=== PATIENT | female | born 1960 | race Caucasian/White ===

== ENCOUNTER 2018-11-18 19:29 | Emergency (ER) | payer SELFPAY ==
[2018-11-18] MEDS ORDERED: AZITHROMYCIN 250 MG TABLET PO ONE (23:05)
[2018-11-18] MEDS ORDERED: PREDNISONE 20 MG TABLET PO ONE (23:06)
--- NOTE | 2018-11-18 23:10 | ER Document Report ---
HPI - HPI Time Seen by Provider: 11/18/18 22:54 Pain Level: 2 Context: Patient is a 58-year-old female that comes to the emergency department for chief complaint of 4 days of symptoms including cough, sinus congestion, chills, sinus pressure. She had a mild sore throat. She states that she has worsened to the point where she has coughed up green sputum, coughed until she vomited, and she has had some nausea with eating. She is still hydrating easily. She smokes. She states she was diagnosed with hypertension in the past but she does not take any current medications. She has not had the influenza vaccine. - EENT EENT: REPORTS: Sore Throat Past Medical History - General Information source: Patient - Social History Smoking Status: Current Every Day Smoker Chew tobacco use (# tins/day): No Smoking Education Provided: Yes - <3 min Frequency of alcohol use: None Drug Abuse: None Lives with: Alone Family History: Reviewed & Not Pertinent Patient has suicidal ideation: No Patient has homicidal ideation: No Renal/ Medical History: Denies: Hx Peritoneal Dialysis Surgical Hx: Negative - Immunizations Hx Diphtheria, Pertussis, Tetanus Vaccination: Yes Vertical Provider Document - CONSTITUTIONAL General Appearance: Other - Patient moderately unwell appearing but not toxic in appearance. - INFECTION CONTROL TRAVEL OUTSIDE OF THE [place] IN LAST 30 DAYS: No - HEENT HEENT: Atraumatic, Normocephalic. negative: Normal ENT Exam - Sinus congestion, some sinus tenderness slightly worse on the right in the next sinuses, unremarkable ears, unremarkable oropharyngeal exam. - NECK Neck: Normal Inspection - RESPIRATORY Respiratory: Other - Congested cough, few scattered coarse breath sounds, no wheezing, rhonchi, rales. No tachypnea or respiratory distress. - CARDIOVASCULAR Cardiovascular: Regular Rate, Regular Rhythm - GI/ABDOMEN Gastrointestinal: Abdomen Soft, Abdomen Non-Tender - BACK Back: Normal Inspection - MUSCULOSKELETAL/EXTREMETIES Musculoskeletal/Extremeties: MAEW, FROM, Non-Tender - NEURO Level of Consciousness: Awake, Alert, Appropriate Motor/Sensory: No Motor Deficit, No Sensory Deficit - DERM Integumentary: Warm, Dry, No Rash Course - Re-evaluation Re-evalutation: Patient with some coughing, some scattered coarse breath sounds, some sinus congestion and tenderness on exam. She reports developing chills and productive cough. Most likely bronchitis in a smoker, however I recommended chest x-ray to rule out developing pneumonia because of her worsening symptoms. Patient declines, she requests medication for her symptoms and discharge. She is not febrile, tachycardic, hypoxic. She does not have tachypnea or distress on evaluation. As a result she will be covered for possible underlying pneumonia, treatment with prednisone for COPD, discussed smoking cessation, discussed follow-up and return precautions, provided with work-release. Patient states she will return if she worsens, states understanding and agreement with plan. - Vital Signs Vital signs: Temp Pulse Resp BP Pulse Ox 98.6 F 84 20 145/76 H 96 11/18/18 19:51 11/18/18 19:51 11/18/18 19:51 11/18/18 19:51 11/18/18 19:51 Discharge - Discharge Clinical Impression: Productive cough, Chills, Sinus congestion Nausea & vomiting Qualifiers: Vomiting type: unspecified Vomiting Intractability: non-intractable Qualified Code(s): R11.2 - Nausea with vomiting, unspecified Condition: Stable Disposition: HOME, SELF-CARE Additional Instructions: Your evaluation is most consistent with viral illness, bronchitis, possible developing pneumonia. Complete antibiotics, take prednisone as prescribed, take Phenergan if needed for nausea. You can take [id number] medication such as Tylenol, nasal spray, etc. Stop smoking. Follow-up with the primary care referrals listed. Return if you worsen including difficulty breathing, spiking fevers, returned or uncontrolled vomiting, or any other concerning or worsening symptoms. Prescriptions: Azithromycin [Zithromax 250 mg Tablet] 250 mg PO ASDIR PRN #4 tablet PRN Reason: Prednisone [Deltasone 20 mg Tablet] 2 tab PO DAILY 5 Days #10 tablet Promethazine HCl [Phenergan 25 mg Tablet] 25 mg PO Q6H PRN #15 tablet PRN Reason: Forms: Return to Work
[2018-11-18 23:25] VITALS: BP 172/54
== END 2018-11-18 23:26 | disposition home or self-care (01) ==
LOC: ER 19:29
DX: R05 Cough (principal); R68.83 Chills (without fever); R11.2 Nausea with vomiting, unspecified; R09.81 Nasal congestion; F17.200 Nicotine dependence, unspecified, uncomplicated
CPT/HCPCS: 99283